=== PATIENT | male | born 1940 | race Caucasian/White ===

== ENCOUNTER 2017-02-20 17:20 | Emergency (ER) ==
[2017-02-20] MEDS ORDERED: EPINEPHRINE 1:10,000 SYRINGE IV STA ×2 (17:25→19:25)
[2017-02-20 17:41] VITALS: BP 0/0; TEMP 96.8; BMI 27.8
--- NOTE | 2017-02-20 17:51 | ED.PDOC ---
General ED Provider: Dr. EMMY MANZANO Chief Complaint: Cardiac Arrest Stated Complaint: cardiac arrest Time Seen by Physician: 17:34 Mode of Arrival: Carried Information Source: Family, EMT Exam Limitations: No limitations Nursing and Triage Documentation Reviewed and Agree: Yes Cardiac Resuscitation - Cardiac Resuscitation Onset/Duration: Unknown Witnessed Arrest: Yes (by neighbor who cave CPR) Airway Prehospital Findings: Reports: Patent (INTUBATED ) Circulation/Rhythm Prehospital Findings: Reports: Asystole Disability/Neurological Prehospital Findings: Reports: Unresponsive (FIXED DILATED PUPILS 30 MINUTES DOWN TIME ARRIVED IN [place]) Breathing Prehospital Intervention: Reports: Intubation Breathing Prehospital Response: Present: ETT in airway, Equal breath sounds Circulation/Rhythm Prehospital Response: Present: Asystole Total Down Time HISTORIOGRAPHER: OVER 30 MIN Breathing ED Findings: Present: Apnea Disability/Neurological ED Findings: Present: Unresponsive Breathing ED Intervention: Intubated by Other (EMS) Circulation/Rhythm ED Intervention: Chest compressions, IV/IO placed (JACINTO MANZANO FIRST ATTEMPT) Breathing ED Response: ETT in airway, Equal breath sounds, Confirmed by auscultation, Confirmed by CO2 detector Circulation/Rhythm ED Response: Present: Asystole Right Pupil: Dilated Left Pupil: Dilated EMS/Code Sheet Reviewed: Yes Patient is a DNR: Yes (LATER FAMILY ARRIVED REQUESTED CODE TO STOP) Resuscitation Successful: No Differential Diagnoses: Acute [place], Asystole Past Medical History - Past Medical History Endocrine: Reports: Unknown Cardiovascular: Reports: Unknown Respiratory: Reports: Unknown Hematological: Reports: Unknown Gastrointestinal: Reports: Unknown Genitourinary: Reports: Unknown Neuro/Psych: Reports: Unknown Musculoskeletal: Reports: Unknown Cancer: Reports: Unknown - Surgical History General Surgical History: Reports: Unknown - Family History Family History: Reports: Unknown - Social History Smoking Status: Unknown if ever smoked Critical Care Note - Critical Care Note Total Time (mins): 0 Course - Course Vital Signs: Temp Pulse Resp BP Pulse Ox 02/20/17 17:31 96.8 F L 0 L 0 L 0/0 L 90 L Departure - Departure Time of Disposition: 17:57 Disposition: Discharge Problem: Cardiac arrest Condition: Good Pt referred to PMD for follow-up: No Disposition Discussed With: Patient, Family
== END 2017-02-20 17:40 | disposition expired ==
LOC: ED 17:40
DX: I46.9 Cardiac arrest, cause unspecified (principal)
CPT/HCPCS: 96374; 99284